=== PATIENT | female | born 1970 | race Caucasian/White ===

== ENCOUNTER 2016-07-22 13:43 | Observation (INO) | payer BC, OTHER ==
[2016-07-22] MEDS ORDERED: SUCRALFATE 1 G/10 ML UDC PO ONE (13:50)
[2016-07-22] MEDS ORDERED: MAG HYDROX/ALUMINUM HYD/SIMETH 30 ML UDC PO ONE (13:50)
[2016-07-22] MEDS ORDERED: LIDOCAINE HCL 20 ML UDC PO ONE (13:50)
[2016-07-22] MEDS ORDERED: ASPIRIN 325 MG TABLET.DR PO ONE (14:04)
[2016-07-22] MEDS ORDERED: ASPIRIN 325 MG TABLET.DR ONE (14:24)
[2016-07-22 14:31] LABS: Hematocrit 44.8 % (37.0-47.0); Hemoglobin 14.7 gm/dL (12.5-16.0); Mean Cell Volume 90.7 fl (78-100); Mean Corpuscular Hemoglobin 29.8 pg (27-31); Mean Corpuscular Hgb Conc 32.8 g/dl (32-36); Mean Platelet Volume 9.9 fl (6.0-9.5); Neutrophil % 60.6 % (42-75.0); Platelet Count 249 K/mm3 (150-450); Red Blood Count 4.94 M/mm3 (4.2-5.4); Red Cell Distribution Width 12.8 % (11.5-14.0); White Blood Count 8.3 K/mm3 (4.0-10.5)
[2016-07-22 14:37] LABS: ALT 26 U/L (19-67); AST 16 U/L (0-48); Albumin * 3.7 gm/dl (3.4-5.0); Alkaline Phosphatase * 98 U/L (50-170); Anion Gap 11.6 mmol/L (6.8-13.8); BUN/Creatinine Ratio 8.2 (9.0-21.6); Bilirubin, Total 0.3 mg/dL (0.0-1.1); Blood Urea Nitrogen 6 mg/dL (3-23); Ca. Corrected For Albumin 8.6 mg/dL (8.4-10.2); Calcium * 8.7 mg/dL (7.9-10.9); Carbon Dioxide 30.4 mmol/L (24-32.6); Chloride 109 mmol/L (97-106); Glucose * 83 mg/dL (70-110); Lipase 102 U/L (73-393); Sodium 147 mmol/L (132-142); Total Protein 7.5 gm/dL (6.2-8.2); Troponin I Less than 0.017 ng/ml (0.00-0.10)
[2016-07-22] MEDS ORDERED: NITROGLYCERIN 0.4 MG/TAB BTL SL ONE (15:18)
[2016-07-22] MEDS ORDERED: NICOTINE 21 MG PATC TD ONE (16:49)
--- NOTE | 2016-07-22 16:49 | ERNOTE ---
Chest Pain/Cardiac HPI Date of Service: 07/22/16 Chief Complaint: Chest Pain Time Seen by Provider: 07/22/16 13:59 Source: patient Exam Limitations: no limitations Immunizations: IMMUNIZATION HX Immunizations Up to Date Yes History of Influenza Vaccine No Hx Pneumococcal Vaccination No Allergies/Adverse Reactions: Allergies Penicillins Allergy (Intermediate, Verified 09/08/15 14:20) Hives morphine Adverse Reaction (Intermediate, Verified 09/08/15 14:20) Vomiting Home Medications: HOME MEDICATIONS Estradiol [Estrace] 2 mg PO DAILY 10/31/14 [Last Taken Unknown] Gabapentin 300 mg PO TID 10/31/14 [Last Taken Unknown] Levothyroxine Sodium [Synthroid] 300 mcg PO DAILY 10/31/14 [Last Taken Unknown] Meloxicam [Mobic] 15 mg PO DAILY 10/31/14 [Last Taken Unknown] Omeprazole Magnesium 20 mg PO DAILY 10/31/14 [Last Taken Unknown] Pramipexole Di-HCl [Mirapex] 0.25 mg PO TID 10/31/14 [Last Taken Unknown] Metoclopramide HCl [Reglan] 10 mg PO QID PRN #30 tab 09/08/15 [Last Taken Unknown] Narrative: Patient presents to the ED for chest pain. She relates CP since the morning center of chest and into left arm with left arm numbness. She relates that she had an abnormal stress test fairly recently but has not followed up with cardiology yet. She does not recall ever having pain exactly like this before. initially some pleuritic component and some SOB but none now. No calf pain or leg swelling. Nothing makes this better or worse at this point. Pain moderate now but worse earlier. Has not seen anyone else for it. Timing: constant Severity/Quality: moderate Location: central Chest Pain Radiation: arms Activities at Onset: none Modifying Factors - Improves: Present: breathing Aspirin Treatment Today: no aspirin today Associated Symptoms: Present: shortness of breath Prior Treatment: Denies: recently seen Review of Systems - Review of Systems Constitutional: Absent: fever Respiratory: Present: See HPI Cardiology: Present: See HPI Gastrointestinal/Abdominal: Absent: abdominal pain Genitourinary: Absent: dysuria All Other Systems: All systems neg except as marked - Patient's Past Medical History Patient History - Medical: GERD, Hypothyroidism, Kidney stone Patient History - Cardiac/Respiratory: Myocardial Infarction Patient History - Cancer: No Hx of Cancer Patient History - Surgical Procedures: Appendectomy, Cholecystectomy, Hysterectomy, Other Patient History - Other: None - Social History Living Situations: home Abuse History: No History of abuse Psych History: No pertinent hx Smoking Status: Current every day smoker Alcohol Use: none Drug Use: other - Immunizations Immunizations Up to Date: Yes Hx Pneumococcal Vaccination: No History of Influenza Vaccine: No Physical Exam - Physical Exam General Appearance: Present: alert, no apparent distress Eye Exam: Normal inspection: bilateral, PERRL: bilateral Ears, Nose, Throat: Present: normal ENT inspection Neck: Present: normal inspection Respiratory: Present: no respiratory distress, normal breath sounds, no accessory muscle use, lungs clear, chest tenderness, other - mild low chest tenderness but she does not think this reproduces the pain she was having. Cardiovascular/Chest: Present: regular rate, rhythm, normal peripheral pulses Gastrointestinal/Abdominal: Present: normal bowel sounds, nontender, soft. Absent: tenderness Back Exam: Present: normal range of motion Extremity Exam: Present: normal inspection, other - no calf tendenress. Neurological Exam: Present: alert, normal mood/affect, no motor/sensory deficits Skin Exam: Present: normal color. Absent: skin rash ED Progress - Results and Orders Patient's Lab Results:: I have reviewed the patient's lab results. - Vital Signs Patient's Vital Signs:: I have reviewed the patient's vital signs. Vital Signs: Vital Signs 07/22/16 07/22/16 07/22/16 13:44 13:57 14:22 Temperature 36.7 C Pulse Rate 91 87 88 Respiratory 22 H 24 H Rate Blood Pressure 163/88 128/78 O2 Sat by Pulse 94 94 Oximetry 07/22/16 07/22/16 15:07 15:43 Temperature Pulse Rate 83 85 Respiratory 19 22 H Rate Blood Pressure 128/78 120/71 O2 Sat by Pulse 93 95 Oximetry - EKG EKG: NSR EKG read: Interp. by me EKG Comments: NSR. Non-specific ST/T wave changes no STEMI. - X-Ray X-Ray #1 X-Ray: chest Interpretation: Reviewed by me X-ray Comments: No acute process - CT/Ultrasound CT/Ultrasound Narrative: No PE - Progress/Reassessment Chief Complaint: Chest Pain Progress Note-Subjective: 07/22/16 16:48 D/W Dr Sepulveda. He recommends admit with obs for r/o given her abnormal stress test. Pt agreeable. Departure - Departure Clinical Impression: Chest pain Disposition: [facility]
[2016-07-22] MEDS ORDERED: NICOTINE 21 MG PATC TD SCH (17:00)
[2016-07-22] MEDS ORDERED: ACETAMINOPHEN 325 MG TABLET PO PRN (19:33)
[2016-07-22] MEDS ORDERED: ALBUTEROL SULFATE/IPRATROPIUM 3 ML NEBU IH PRN (19:34)
[2016-07-22] MEDS ORDERED: ALBUTEROL SULFATE 200 PUFF INHALER IH PRN (19:34)
[2016-07-22] MEDS ORDERED: ACETAMINOPHEN 325 MG TABLET ONE (19:51)
[2016-07-22] MEDS: TOPIRAMATE 50 MG TABLET PO SCH (20:49)
--- NOTE | 2016-07-22 20:58 | HP ---
Chief Complaint - Chief Complaint Date of Service: 07/22/16 Time of Service: 20:41 Chief Complaint: Chest pain History of Present Illness: 46 years old female adm to the hospital with reports of chest pain radiating to left arm. Associated s/s nausea, vomiting, diaphoresis, dizziness, shortness of breath, non productive cough and palpitation. Pt stated s/s is resolving and she is feeling much better since coming to the hospital. Pt stated the pain began earlier today while she was asleep and it felt like something was sitting on her chest making it hard for her to breath. 6 months ago she had similar episode. She had stress test and was referred to [facility] but due to lack of health insurance at the time she didn't follow up. Since then she had no more issues until today. PMH significant for hypothyroidism, RLS and smoker. in ER initial troponin x2 negative, EKG no ST changes, D-Dmer 0.[address] chest negative for PE. Plan for overnight observation while on telemetry. - Patient's Past Medical History Patient History - Medical: GERD, Hypothyroidism, Kidney stone, Other - RLS Patient History - Cardiac/Respiratory: Myocardial Infarction Patient History - Cancer: No Hx of Cancer Patient History - Surgical Procedures: Appendectomy, Cholecystectomy, Hysterectomy, Other Patient History - Other: None LMP (females 10-50): postmenopausal - Family History Father Family History - Medical: History Unknown Mother Family History - Medical: Depression Family History - Cardiac/Respiratory: Atrial Fibrillation, Hypertension, Hyperlipidemia - Social History Living Situations: spouse Abuse History: No History of abuse Psych History: No pertinent hx Smoking Status: Current every day smoker Cigarettes Packs Per Day: 1 - pack daily Have you smoked in the past 12 months: Yes Do you dip or chew tobacco: No Patient requests Smoking Cessation Consult: No Initiate information on Smoking Cessation: Yes Alcohol Use: none Drug Use: none - Immunizations Immunizations Up to Date: Yes Hx Pneumococcal Vaccination: No History of Influenza Vaccine: No Review Of Systems (GEN) - Review of Systems Generalized/Overall Review: Present: No Symptoms Reported EENTM: Present: No Symptoms Reported Respiratory: Present: Cough - non productive Cardiac: Present: No Symptoms Reported Abdominal: Present: No Symptoms Reported Genitourinary: Present: No Symptoms Reported Musculoskeletal: Present: No Symptoms Reported Neurological: Present: No Symptoms Reported Skin: Present: No Symptoms Reported Endocrine: Present: No Symptoms Reported Immunizations: IMMUNIZATION HX Immunizations Up to Date Yes History of Influenza Vaccine No Hx Pneumococcal Vaccination No Allergies/Adverse Reactions: Allergies Allergy/AdvReac Type Severity Reaction Status Date / Time Penicillins Allergy Intermediate Hives Verified 07/22/16 17:37 morphine AdvReac Intermediate Vomiting Verified 07/22/16 17:37 Home Medications: HOME MEDICATIONS Estradiol [Estrace] 2 mg PO DAILY 10/31/14 [Last Taken Unknown] Gabapentin 300 mg PO TID 10/31/14 [Last Taken Unknown] Levothyroxine Sodium [Synthroid] 300 mcg PO DAILY 10/31/14 [Last Taken Unknown] Meloxicam [Mobic] 15 mg PO DAILY 10/31/14 [Last Taken Unknown] Omeprazole Magnesium 20 mg PO DAILY 10/31/14 [Last Taken Unknown] Pramipexole Di-HCl [Mirapex] 0.25 mg PO HS 10/31/14 [Last Taken Unknown] Albuterol Sulfate [Ventolin HFA] 2 puff IH Q4H PRN 07/22/16 [Last Taken Unknown] Ipratropium/Albuterol Sulfate [Iprat-Albut 0.5-3(2.5) mg/3 ml] 3 ml IH QID PRN 07/22/16 [Last Taken Unknown] Topiramate [Topamax] 50 mg PO BID 07/22/16 [Last Taken Unknown] Exam - Exam Vital Signs: Vital Signs - Last Taken Temp 36.5 C 07/22/16 17:11 Pulse 70 07/22/16 17:11 Resp 18 07/22/16 17:11 BP 140/73 07/22/16 17:11 Pulse Ox 93 07/22/16 17:11 Constitutional: Present: Alert, Oriented x3, Cooperative, Well developed, No distress, Looks Older than stated age ENT Exam: Present: moist mucous membranes Eye Exam: bilateral eye: PERRL Neck: Present: full range of motion Back Exam: Present: normal inspection Breasts: Present: Exam deferred Respiratory: Present: chest non-tender, normal breath sounds, no respiratory distress, no accessory muscle use, decreased breath sounds Cardiovascular/Chest: Present: normal peripheral pulses, regular rate, rhythm, no chest tenderness, no edema Peripheral Pulses: dorsalis-pedis (R): 3+, dorsalis-pedis (L): 3+ Abdomen: Present: Normal bowel sounds, soft, nontender, nondistended, no rebound tenderness /Rectal: Present: Exam deferred Extremity: Present: normal range of motion Skin Exam: Present: normal color, warm/dry Lymphatic: Present: no adenopathy Neurologic: Present: oriented x 3 Appearance: Present: appropriate appearance Eye contact: Present: cooperative, good eye contact Thoughts: Present: normal thought pattern Diagnostic Studies: Laboratory Results WBC 8.3 K/mm3 (4.0-10.5) 07/22/16 14:15 RBC 4.94 M/mm3 (4.2-5.4) 07/22/16 14:15 Hgb 14.7 gm/dL (12.5-16.0) 07/22/16 14:15 Hct 44.8 % (37.0-47.0) 07/22/16 14:15 MCV 90.7 fl (78-100) 07/22/16 14:15 MCH 29.8 pg (27-31) 07/22/16 14:15 MCHC 32.8 g/dl (32-36) 07/22/16 14:15 RDW 12.8 % (11.5-14.0) 07/22/16 14:15 Plt Count 249 K/mm3 (150-450) 07/22/16 14:15 MPV 9.9 fl (6.0-9.5) H 07/22/16 14:15 Immature Gran % (Auto) 0.20 % (0.001-0.429) 07/22/16 14:15 Immature Gran # (Auto) 0.02 K/mm3 (0.000-0.0310) 07/22/16 14:15 Neutrophils % 60.6 % (42-75.0) 07/22/16 14:15 Lymphocytes % 28.3 % (20-51) 07/22/16 14:15 Monocytes % 8.8 % (0.0-9) 07/22/16 14:15 Eosinophils % 1.4 % (0.0-3.0) 07/22/16 14:15 Basophils % 0.7 % (0.0-1.0) 07/22/16 14:15 Nucleated RBC % 0.0 k/mm3 (0-1) 07/22/16 14:15 Neutrophils # 5.0 K/mm3 (1.3-6.0) 07/22/16 14:15 Lymphocytes # 2.4 k/mm3 (1.5-3.5) 07/22/16 14:15 Monocytes # 0.7 k/mm3 (0.0-1.0) 07/22/16 14:15 Eosinophils # 0.1 k/mm3 (0.0-0.7) 07/22/16 14:15 Absolute Basophils 0.1 k/mm3 (0.0-0.1) 07/22/16 14:15 D-Dimer 0.55 mg/L (0.19-0.49) H 07/22/16 14:15 Sodium 147 mmol/L (132-142) H 07/22/16 14:15 Plasma Sodium 147 mmol/L (130-142) H 07/22/16 14:15 Potassium 4.0 mmol/L (3.4-4.6) 07/22/16 14:15 Chloride 109 mmol/L (97-106) H 07/22/16 14:15 Carbon Dioxide 30.4 mmol/L (24-32.6) 07/22/16 14:15 Anion Gap 11.6 mmol/L (6.8-13.8) 07/22/16 14:15 BUN 6 mg/dL (3-23) 07/22/16 14:15 Creatinine 0.73 mg/dL (0.4-1.4) 07/22/16 14:15 Est GFR (Non-Af Amer) 92 mL/min (60-130) 07/22/16 14:15 BUN/Creatinine Ratio 8.2 (9.0-21.6) L 07/22/16 14:15 Random Glucose 83 mg/dL (70-110) 07/22/16 14:15 Lactic Acid, Venous 1.1 mmol/L (0.4-1.9) 07/22/16 14:15 Calcium 8.7 mg/dL (7.9-10.9) 07/22/16 14:15 Calcium Adj for Albumin 8.6 mg/dL (8.4-10.2) 07/22/16 14:15 Total Bilirubin 0.3 mg/dL (0.0-1.1) 07/22/16 14:15 AST 16 U/L (0-48) 07/22/16 14:15 ALT 26 U/L (19-67) 07/22/16 14:15 Alkaline Phosphatase 98 U/L (50-170) 07/22/16 14:15 Troponin I Less than 0.017 ng/ml (0.00-0.10) 07/22/16 20:12 Total Protein 7.5 gm/dL (6.2-8.2) 07/22/16 14:15 Albumin 3.7 gm/dl (3.4-5.0) 07/22/16 14:15 Lipase 102 U/L (73-393) 07/22/16 14:15 Assessment/Plan - Narrative Narrative: Chest pain Troponin x2 negative On adm EKG: Non-specific ST/T wave changes no STEMI. Continue with telemetry monitoring overnight. Aspirin 325 given in ER and continue with daily Lipid panel pending 6 months ago pt stated she had Cardiac stress, per PCP Inferior changes possible breast shadowing.pt was referred to [facility] Pt stated Due to insurance pt didn't show up for her [facility] appt. Hypothyroidism Continue with home dose of medication TSH pending GERD Continue with protonix Code status : Full VTE Ambulate GI ppx: protonix Smoking cessation education provided and nicotine patch Anticipate discharge home in 0-1 day and follow up with PCP - Assessment/Plan (1) Chest pain Problem: Acute Qualifiers: Chest pain type: unspecified Qualified Code(s): R07.9 - Chest pain, unspecified (2) Smoker Problem: Chronic (3) Hypothyroidism Problem: Chronic
[2016-07-22] MEDS ORDERED: PRAMIPEXOLE DI-HCL 0.5 MG TABLET PO SCH (21:00)
[2016-07-23 06:28] LABS: Anion Gap 10.1 mmol/L (6.8-13.8); Calcium * 9.1 mg/dL (7.9-10.9); Chol/HDL Risk Ratio 4.8 mg/dL (3.3-4.4); Estimated Creat Clear 110.2; Potassium 4.1 mmol/L (3.4-4.6); TSH * 20.114 uIU/mL (0.358-3.74)
[2016-07-23 06:46] VITALS: BP 134/76
[2016-07-23] MEDS ORDERED: LEVOTHYROXINE SODIUM 150 MCG TABLET PO SCH (07:00)
[2016-07-23] MEDS ORDERED: PANTOPRAZOLE SODIUM 20 MG TABLET.DR PO SCH (07:00)
[2016-07-23] MEDS ORDERED: ALBUTEROL SULFATE 2.5 MG/3 ML VIAL.NEB IH PRN (07:15)
[2016-07-23] MEDS: TOPIRAMATE 50 MG TABLET PO SCH (08:46)
[2016-07-23] MEDS ORDERED: MELOXICAM 15 MG TABLET PO SCH (09:00)
[2016-07-23] MEDS ORDERED: GABAPENTIN 300 MG CAPSULE PO SCH (09:00)
[2016-07-23] MEDS ORDERED: ASPIRIN 81 MG TAB.CHEW PO SCH (09:00)
[2016-07-23] MEDS ORDERED: ESTRADIOL 0.5 MG TABLET PO SCH (09:00)
--- NOTE | 2016-07-23 09:08 | DS ---
(1) Chest pain Diagnosis(s): Kylah is a 46 yo female that was admitted with chest pain. Initial evaluation was negative for acute [place] with no acute change on ECG and no elevation in troponin. She was placed on telemetry and no acute change occurred. Repeat troponin was negative. She will be discharged to home. She previously had a stress test that showed abnormality. It was recommended that she follow up with Cardiology as previously scheduled due to abnormal stress test. Problem: Acute Qualifiers: Chest pain type: unspecified Qualified Code(s): R07.9 - Chest pain, unspecified Procedures Performed: none Discharge Disposition: Home self care Disposition: Home self-care Condition: Good Discharge Activity: Activity as tolerated Discharge Diet: Low fat/chol Referrals: Del Sepulveda DO [Primary Care Provider] - One Week Eli Goins MD [Associate] - ([facility] Cardiology next available, new patient) Problem Oriented Discharge Instructions to Patient/Family: Chest Pain Observation Additional Patient Instructions (free text): Follow up with Dr. Sepulveda one week on July at 11:15 Am. Follow up with Dr. Goins on July at 1:15 pm at [facility] office. Prescriptions (Any new or edited meds): Aspirin [Aspirin Chewable] 81 mg PO DAILY #30 tab.chew Complete Home Medications List: Complete Home Medication List: Estradiol [Estrace] 2 mg PO DAILY 10/31/14 Gabapentin 300 mg PO TID 10/31/14 Levothyroxine Sodium [Synthroid] 300 mcg PO DAILY 10/31/14 Meloxicam [Mobic] 15 mg PO DAILY 10/31/14 Omeprazole Magnesium 20 mg PO DAILY 10/31/14 Pramipexole Di-HCl [Mirapex] 0.25 mg PO HS 10/31/14 Albuterol Sulfate [Ventolin HFA] 2 puff IH Q4H PRN 07/22/16 Ipratropium/Albuterol Sulfate [Iprat-Albut 0.5-3(2.5) mg/3 ml] 3 ml IH QID PRN 07/22/16 Topiramate [Topamax] 50 mg PO BID 07/22/16 Aspirin [Aspirin Chewable] 81 mg PO DAILY #30 tab.chew 07/23/16
== END 2016-07-23 10:44 | disposition home or self-care (01) ==
LOC: ER 13:43 → MS 16:15
PROVIDERS: ADMIT Family Medicine; ATTEND Family Medicine
DX: R07.9 Chest pain, unspecified (principal); E03.9 Hypothyroidism, unspecified; R00.2 Palpitations; K21.9 Gastro-esophageal reflux disease without esophagitis; F17.210 Nicotine dependence, cigarettes, uncomplicated; R06.02 Shortness of breath
CPT/HCPCS: 36415; 71020; 71275; 80048; 80053; 80061; 83605; 83690; 84443; 84484; 85025; 85379; 93005; 99284; G0378